=== PATIENT | female | born 1960 | race Caucasian/White ===

== ENCOUNTER 2023-02-19 16:54 | Outpatient (CLI) | payer OTHER, SELFPAY ==
--- NOTE | 2023-02-19 17:15 | CRLHL7_ITS ---
For Patients: As a result of the Century Cures Act, medical imaging exams and procedure reports are released immediately into your electronic medical record. You may view this report before your referring provider. If you have questions, please contact your health care provider. BILATERAL SCREENING MAMMOGRAM WITH COMPUTER-AIDED DETECTION AND TOMOSYNTHESIS TECHNIQUE: CC and MLO views were obtained. These mammographic images have been obtained using full-field digital technique. These mammographic images were interpreted with the benefit of computer-aided detection. Breast Tomosynthesis was used in this interpretation. COMPARISON FILM: 11/20/21, 08/29/20, 07/11/18. FINDINGS: The breasts are heterogeneously dense, which may obscure small masses. IMPRESSION: There is no radiographic evidence for malignancy. ASSESSMENT: BI-RADS Category 1: Negative RECOMMENDATION: Routine screening mammogram in 1 year. A lay language report of this examination will be provided to the patient. Abdiaziz Latif M.D. Diagnostic Radiologist [email or web address] Transcribed: 8:28 a.m. PT/Dictated by: Abdiaziz Latif MD @ 02/26/2023 11:21:00 AM (Electronically Signed)
== END 2023-02-19 16:55 | disposition home or self-care (01) ==
LOC: MAMMO 16:54
PROVIDERS: PCP Family Medicine; Visit Provider Family Medicine
DX: Z12.31 Encounter for screening mammogram for malignant neoplasm of breast (principal); R92.2 Inconclusive mammogram
CPT/HCPCS: 77063; 77067

== ENCOUNTER 2023-08-26 16:36 | Emergency (ER) | payer OTHER, SELFPAY ==
[2023-08-26] VITALS (15 sets, daily range): BP systolic 130–146; BP diastolic 78–89; PULSE 60–70; RESP 16; TEMP 36.9; O2SAT 95–97; BMI 19.7
--- NOTE | 2023-08-26 17:13 | CRLHL7_ITS ---
For Patients: As a result of the Century Cures Act, medical imaging exams and procedure reports are released immediately into your electronic medical record. You may view this report before your referring provider. If you have questions, please contact your health care provider. Indication: Chest pain Technique: Chest 1 view Comparison: None Findings/Impression: Cardiovascular and mediastinum: Heart size and vasculature are normal in caliber and appearance. Lungs and pleural space: Lungs are clear. No sign of infiltrate or mass. No sign of pleural effusion. No pneumothorax. Bones and soft tissues: No acute findings. Dictated by Levar Nieves MD @ 08/26/2023 5:44:19 PM (Electronically Signed)
[2023-08-26] MEDS: ASPIRIN 81 MG TAB.CHEW 324 MG PO (17:25)
[2023-08-26 17:36] LABS: Basophils Absolute Auto 0.02 K/uL (0.00-0.30); Basophils Percent Auto 0.3 % (0.0-3.0); Eosinophils Absolute Auto 0.07 K/uL (0.00-0.50); Eosinophils Percent Auto 0.9 % (0.0-7.0); Hematocrit 44.3 % (33.0-51.0); Hemoglobin* 14.5 gm/dL (12.0-16.0); Lymphocytes Absolute Auto 1.66 K/uL (0.90-2.90); Lymphocytes Percent Auto 21.1 % (20-44); Mean Corpuscular HGB Conc 33 gm/dL (32-36); Mean Corpuscular Hemoglobin 28 pg (26-34); Mean Corpuscular Volume 86 fL (80-100); Monocytes Percent Auto 5.9 % (0.0-11.0); Neutrophils Absolute Auto 5.65 K/uL (1.7-7.0); Neutrophils Percent Auto 71.8 % (42.0-72.0); Platelet Count* 251 K/uL (140-440); RDW Coefficient of Variation % 12.7 % (11.5-15.5); Red Blood Count 5.15 m/uL (4.00-5.20); White Blood Count* 7.86 K/uL (4.50-11.00)
[2023-08-26 17:37] LABS: Slide Review Reflex No
[2023-08-26 17:42] LABS: Troponin, Point-of-Care* 0.01 ng/ml (0.01-0.04)
[2023-08-26 17:49] LABS: Albumin* 4.5 g/dL (3.3-5.0); Chloride* 103 mmol/L (96-114); Sodium* 140 mmol/L (135-149)
[2023-08-26 17:50] LABS: Potassium* 3.8 mmol/L (3.6-5.1)
[2023-08-26 17:52] LABS: Alkaline Phosphatase* 70 U/L (40-150); Anion Gap 9 mEq/L (7-15); Aspartate Amino Transferase* 27 U/L (12-35); Bilirubin Total* 0.6 mg/dL (0.1-1.5); Carbon Dioxide* 28 mmol/L (20-32); Creatinine* 0.8 mg/dL (0.5-1.5); Est. Creatinine Clearance* 48.65; Estimated Glomerular Filt Rate 84 ml/min; Total Protein* 7.6 g/dL (6.0-8.3)
[2023-08-26 17:53] LABS: Alanine Aminotransferase* 17 U/L (4-35); Blood Urea Nitrogen* 20 mg/dL (7-30); Calcium* 9.8 mg/dL (8.4-10.6); Glucose* 92 mg/dL (60-115)
[2023-08-26 17:54] LABS: D Dimer Quantitative* < 0.27 ug/ml (0.00-0.50)
[2023-08-26 18:07] LABS: C Reactive Protein* < 0.5 mg/dL (0.5-1.0); NT Pro B Type NatriureticPept* 195 pg/mL
--- NOTE | 2023-08-26 21:14 | ED.GENADULT ---
HPI - General Adult General Date Seen: 08/26/23 Chief complaint: Chest Pain Stated complaint: Chest pain Time Seen by Provider: 08/26/23 17:03 Source: patient Mode of arrival: ambulatory Limitations: no limitations History of Present Illness HPI narrative: Patient is a 63-year-old woman who presents for evaluation of chest pain, onset about 3 hours prior to arrival. She says that she has been having multiple episodes of a squeezing sensation in her chest, it kind of comes in waves will last for a few seconds and then dissipate although it is happening every minute or 2. She does not have any pleuritic pain, shortness of breath, diaphoresis, nausea or vomiting. 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 There had been an episode where she says she kind of lost her cool over needing to redo for past words, and symptoms have been present since then. She notes recent addition of amlodipine for high blood pressure a couple of weeks ago. She sees Dr. Blackmon for routine healthcare. Aside from hypertension, she does not have any cardiac risk factors, does not smoke, no family history of coronary artery disease or stroke. Related Data Home Medications Medication Instructions Recorded Confirmed ibandronate 150 mg tablet 150 mg PO ONCE 09/10/22 09/10/22 amlodipine 2.5 mg tablet 2.5 mg PO DAILY 08/26/23 08/26/23 Allergies Allergy/AdvReac Type Severity Reaction Status Date / Time No Known Drug Allergies Allergy Verified 09/10/22 19:11 Review of Systems Status of ROS: Reports: 10 or more systems reviewed and unremarkable except as noted in History and below [facility] Social History Smoking Status: Never smoker Do you use any of these nicotine containing products: None Second hand tobacco smoke exposure: No How often do you have a drink containing alcohol: 2-4 times a month How many standard drinks containing alcohol do you have on a typical day: 1 or 2 How often do you have six or more drinks on one occasion: Never AUDIT-C Alcohol total score: 2 Non-prescribed substance use: denies use service: No Exam Narrative: Exam Narrative: Vital signs as noted above. In general, an alert, well-appearing patient. Head: Normocephalic, atraumatic. Eyes: Pupils are equal reactive. Extraocular movements are full. Conjunctivae are normal. ENT: Mucous membranes are moist. Neck: Supple without lymphadenopathy. Heart: Regular rate and rhythm. No murmur or rub. Lungs: Clear bilaterally. No increased work of breathing, crackles or wheezes. Abdomen: Soft and nontender. No organomegaly. Extremities: Well perfused. No edema. No calf tenderness. Pulses intact. Neurologic: Patient is alert and oriented to person and place. Speech is fluent. Face is symmetric. Moves all extremities equally. Affect: Normal. Skin: Warm and dry. Well perfused. Const: Vital Signs, click to edit/add: Vital Signs - 24 hr 08/26/23 16:56 08/26/23 17:13 08/26/23 17:43 Temperature 98.4 F Pulse Rate 65 Pulse Rate [Apical ] 69 Respiratory Rate 16 Blood Pressure Blood Pressure [Le ft Upper Arm] 146/89 H Pulse Oximetry 95 97 97 Oxygen Delivery Me thod Room Air 08/26/23 17:45 08/26/23 18:00 08/26/23 18:01 Temperature Pulse Rate 70 62 63 Pulse Rate [Apical ] Respiratory Rate Blood Pressure 138/85 Blood Pressure [Le ft Upper Arm] Pulse Oximetry 96 96 96 Oxygen Delivery Me thod 08/26/23 18:15 08/26/23 18:30 08/26/23 18:32 Temperature Pulse Rate 62 67 64 Pulse Rate [Apical ] Respiratory Rate Blood Pressure 135/78 Blood Pressure [Le ft Upper Arm] Pulse Oximetry 96 96 97 Oxygen Delivery Me thod 08/26/23 18:45 08/26/23 19:00 08/26/23 19:01 Temperature Pulse Rate 63 65 60 Pulse Rate [Apical ] Respiratory Rate Blood Pressure 133/82 Blood Pressure [Le ft Upper Arm] Pulse Oximetry 95 96 96 Oxygen Delivery Me thod 08/26/23 19:15 08/26/23 19:30 08/26/23 19:31 Temperature Pulse Rate 66 62 61 Pulse Rate [Apical ] Respiratory Rate Blood Pressure 130/83 Blood Pressure [Le ft Upper Arm] Pulse Oximetry 96 95 95 Oxygen Delivery Me thod Course Course ED Course: Patient had an EKG on arrival which showed a normal sinus rhythm, ventricular rate of 65 beats per minute. No acute ST segment changes, T-waves are unremarkable. Initial troponin was 0. She would not have other labs including a CBC, metabolic panel, LFTs, CRP, BNP and D-dimer. All of her labs are within normal limits. Chest x-ray by my review was normal, final radiology read likewise negative. Diagnostic considerations included acute coronary syndrome, angina, PE, pneumonia, gastroesophageal reflux, biliary disease, among others. Discussed with her that while I cannot give her definitive diagnosis, we have ruled out significant causes such as acute coronary syndrome, PE, pneumonia etcetera. Her symptoms resolved while she was here and she is feeling well at this time. I have asked her to follow up with Dr. Blackmon in the next week or so to see how she is doing and decide whether further testing is warranted. Continue her amlodipine. Return for severe worsening symptoms. Vital Signs Vital signs: Initial Vital Signs Temperature 98.4 F 08/26/23 16:56 Temperature Source Temporal Artery Scan 08/26/23 16:56 Pulse Rate 69 08/26/23 16:56 Pulse Rhythm Regular 08/26/23 16:56 Respiratory Rate 16 08/26/23 16:56 Blood Pressure 146/89 H 08/26/23 16:56 Blood Pressure Mean 108 H 08/26/23 16:56 Blood Pressure Position Supine 08/26/23 16:56 Pulse Oximetry 95 08/26/23 16:56 Oxygen Delivery Method Room Air 08/26/23 16:56 Vital Signs Temperature 98.4 F 08/26/23 16:56 Pulse Rate 69 08/26/23 16:56 Respiratory Rate 16 08/26/23 16:56 Blood Pressure 146/89 H 08/26/23 16:56 Pulse Oximetry 95 08/26/23 16:56 Oxygen Delivery Method Room Air 08/26/23 16:56 Temperature 98.4 F 08/26/23 16:56 Pulse Rate 61 08/26/23 19:31 Respiratory Rate 16 08/26/23 16:56 Blood Pressure 130/83 08/26/23 19:31 Pulse Oximetry 95 08/26/23 19:31 Oxygen Delivery Method Room Air 08/26/23 16:56 Medical Decision Making Lab Data Labs: Lab Results 08/26/23 08/26/23 08/26/23 Range/Units 17:13 17:20 19:15 WBC 7.86 (4.50-11.00) K/uL RBC 5.15 (4.00-5.20) m/uL Hgb 14.5 (12.0-16.0) gm/dL Hct 44.3 (33.0-51.0) % MCV 86 (80-100) fL MCH 28 (26-34) pg MCHC 33 (32-36) gm/dL RDW Coeff of Nathan 12.7 (11.5-15.5) % Plt Count 251 (140-440) K/uL Neut % (Auto) 71.8 (42.0-72.0) % Lymph % (Auto) 21.1 (20-44) % [place] % (Auto) 5.9 (0.0-11.0) % Eos % (Auto) 0.9 (0.0-7.0) % Baso % (Auto) 0.3 (0.0-3.0) % Neut # (Auto) 5.65 (1.7-7.0) K/uL Lymph # (Auto) 1.66 (0.90-2.90) K/uL [place] # (Auto) 0.50 (0.00-0.90) K/UL Eos # (Auto) 0.07 (0.00-0.50) K/uL Baso # (Auto) 0.02 (0.00-0.30) K/uL Abs Immat Gran (auto) 0.00 (0.00-0.30) K/uL Imm/Tot Granulo (auto) 0.0 % D-Dimer Quant (PE/DVT) < 0.27 (0.00-0.50) ug/ml Sodium 140 (135-149) mmol/L Potassium 3.8 (3.6-5.1) mmol/L Chloride 103 (96-114) mmol/L Carbon Dioxide 28 (20-32) mmol/L Anion Gap 9 (7-15) mEq/L BUN 20 (7-30) mg/dL Creatinine 0.8 (0.5-1.5) mg/dL Estimated Creat Clear 48.65 Estimated GFR 84 ml/min Glucose 92 (60-115) mg/dL Calcium 9.8 (8.4-10.6) mg/dL Total Bilirubin 0.6 (0.1-1.5) mg/dL Direct Bilirubin 0.0 (0.0-0.5) mg/dL AST 27 (12-35) U/L ALT 17 (4-35) U/L Alkaline Phosphatase 70 (40-150) U/L C-Reactive Protein < 0.5 L (0.5-1.0) mg/dL NT-Pro-B Natriuret Pep 195 pg/mL Total Protein 7.6 (6.0-8.3) g/dL Albumin 4.5 (3.3-5.0) g/dL POC Troponin I 0.01 0.00 L (0.01-0.04) ng/ml Discharge Plan Discharge Clinical Impression: Chest pain Patient Disposition: Home, Self-Care Condition: Stable Instructions: Chest Pain (DC) Additional Instructions: As discussed, I do not have a clear explanation for your chest pain. However, all of your tests are reassuring and there does not appear to be a serious cause for your symptoms at this time. I would recommend that you continue taking your amlodipine and follow-up with your primary care doctor in the next week or so for recheck and to discuss whether further testing is needed. Return at any time for severe pain, new symptoms such as fever, significant shortness of breath, vomiting etcetera. Prescriptions: No Action ibandronate 150 mg tablet 150 mg PO ONCE Patient Comments: once per month amlodipine 2.5 mg tablet 2.5 mg PO DAILY Follow Up/Referrals: Sydnie Blackmon DO [Primary Care Provider] - Stand Alone Forms: [employer] Info Instructions
== END 2023-08-26 20:09 | disposition home or self-care (01) ==
PROVIDERS: Emergency Provider Emergency Medicine; PCP Family Medicine
DX: R07.9 Chest pain, unspecified (principal)
CPT/HCPCS: 36415; 71045; 80048; 80076; 83880; 84484; 85025; 85379; 86140; 93005; 94761; 99284; 99285; A9270